=== PATIENT | female | born 1945 | race Caucasian/White ===

== ENCOUNTER 2016-11-08 13:56 | Emergency (ER) | payer MEDICARE ==
[~2016-11-08 13:56] MED LIST: ACETAMINOPHEN325 MG PO; ALBUTEROL S3 ML/VIAL NEB; ANORO ELLIPTA1 EACH IH; ASPIR 8181 MG PO; CRESTOR5 MG PO; CYCLOBENZAPRINE10 MG PO; HYDROCODON-ACE1 EAC2 PO; NEURONTIN300 MG PO; PREDNISONE10 MG PO; PREDNISONE5 MG PO; PROAIR HFA8.5 GM IH; SUPER ENZYME C1 EACH PO; SYNTHROID75 MCG PO; THEOPHYLLINE400 MG PO; TOPROL XL25 MG PO
== END 2016-11-08 17:12 | disposition home or self-care (01) ==
LOC: ER 13:56
DX: S62.614A Displaced fracture of proximal phalanx of right ring finger, initial encounter for closed fracture (principal); F32.9 Major depressive disorder, single episode, unspecified; E78.00 Pure hypercholesterolemia, unspecified; Z79.899 Other long term (current) drug therapy; Z79.82 Long term (current) use of aspirin; Z79.52 Long term (current) use of systemic steroids; Z88.0 Allergy status to penicillin; W19.XXXA Unspecified fall, initial encounter; Z88.1 Allergy status to other antibiotic agents

== ENCOUNTER 2016-11-29 14:33 | Emergency (ER) | payer MEDICARE | END 2016-11-29 17:18 | disposition home or self-care (01) | LOC: ER 14:33 | DX: R07.9 Chest pain, unspecified (principal); E05.90 Thyrotoxicosis, unspecified without thyrotoxic crisis or storm; R06.02 Shortness of breath; R05 Cough; F41.9 Anxiety disorder, unspecified; J44.9 Chronic obstructive pulmonary disease, unspecified; F32.9 Major depressive disorder, single episode, unspecified; I10 Essential (primary) hypertension; E03.9 Hypothyroidism, unspecified; Z98.51 Tubal ligation status; Z79.82 Long term (current) use of aspirin; Z79.899 Other long term (current) drug therapy; Z88.0 Allergy status to penicillin; Z88.1 Allergy status to other antibiotic agents | CPT/HCPCS: 36415; 87502; 96360 ==

== ENCOUNTER → 2016-12-02 12:41 | Emergency (ER) | payer MEDICARE ==
[~2016-12-02 12:41] MED LIST changes: +ALBUTEROL1.25 MG/3 NEB; +ALBUTEROL2.5 MG/0.5 NEB; +AZITHROMYCIN250 MG PO; +BENZONATATE100 MG PO; +CARDIZEM CD120 MG PO; +CREON DR 24,001 EACH PO; +CULTURELLE1 EACH PO; +HYDROCODON-ACE1 EAC4 PO; +LOPRESSOR50 MG PO; +NITROSTAT0.4 MG SL; +PREDNISONE20 MG PO; +SPIRIVA18 MCG IH; +SYMBICORT 16010.2 GM IH; +TUSSIONEX PENN473 ML PO; +VANCOMYCIN HCL125 MG PO; +VISTARIL25 MG PO
== END | disposition admitted as inpatient to this hospital (09) ==
LOC: ER 12:41
DX: J44.1 Chronic obstructive pulmonary disease with (acute) exacerbation (principal); R10.9 Unspecified abdominal pain; F32.9 Major depressive disorder, single episode, unspecified; I10 Essential (primary) hypertension; E78.00 Pure hypercholesterolemia, unspecified; Z98.51 Tubal ligation status; Z79.82 Long term (current) use of aspirin; Z79.899 Other long term (current) drug therapy; Z88.0 Allergy status to penicillin; Z88.1 Allergy status to other antibiotic agents
CPT/HCPCS: 36415; 87502; 96361; 96374; Q9967

== ENCOUNTER 2016-12-02 12:42 | Inpatient (IN) | payer MEDICARE ==
[~2016-12-02 12:42] MED LIST changes: -ALBUTEROL1.25 MG/3 NEB; -ALBUTEROL2.5 MG/0.5 NEB; -AZITHROMYCIN250 MG PO; -BENZONATATE100 MG PO; -CARDIZEM CD120 MG PO; -CREON DR 24,001 EACH PO; -CULTURELLE1 EACH PO; -HYDROCODON-ACE1 EAC4 PO; -LOPRESSOR50 MG PO; -NITROSTAT0.4 MG SL; -PREDNISONE20 MG PO; -SPIRIVA18 MCG IH; -SYMBICORT 16010.2 GM IH; -TUSSIONEX PENN473 ML PO; -VANCOMYCIN HCL125 MG PO; -VISTARIL25 MG PO
--- NOTE | 2016-12-07 13:54 | NUR ---
1350 - PATIENT DISCHARGED HOME/MD ORDER. IV REMOVED. APPTS. AND PRESCRIPTIONS GIVEN. OUT VIA WHEELCHAIR WITH O2. HOME WITH SON VIA PRIVATE VEHICLE.
== END 2016-12-07 13:50 | disposition home health service (06) | DRG 190 ==
LOC: ER 12:42 → MED 17:00
PROVIDERS: ADMIT Internal Medicine
DX: J44.0 Chronic obstructive pulmonary disease with (acute) lower respiratory infection (principal); J18.9 Pneumonia, unspecified organism; A04.7 Enterocolitis due to Clostridium difficile; K86.1 Other chronic pancreatitis; B37.0 Candidal stomatitis; J44.1 Chronic obstructive pulmonary disease with (acute) exacerbation; I12.9 Hypertensive chronic kidney disease with stage 1 through stage 4 chronic kidney disease, or unspecified chronic kidney disease; N18.3 Chronic kidney disease, stage 3 (moderate); R74.8 Abnormal levels of other serum enzymes; E87.6 Hypokalemia; R73.9 Hyperglycemia, unspecified; T38.0X5A Adverse effect of glucocorticoids and synthetic analogues, initial encounter; F41.9 Anxiety disorder, unspecified; F32.9 Major depressive disorder, single episode, unspecified; E03.9 Hypothyroidism, unspecified; E78.5 Hyperlipidemia, unspecified; Z85.41 Personal history of malignant neoplasm of cervix uteri; Z95.2 Presence of prosthetic heart valve; Z79.82 Long term (current) use of aspirin; Z79.899 Other long term (current) drug therapy; Z88.1 Allergy status to other antibiotic agents; Z88.0 Allergy status to penicillin; Z87.891 Personal history of nicotine dependence; Z80.52 Family history of malignant neoplasm of bladder; K59.00 Constipation, unspecified; I25.2 Old myocardial infarction
CPT/HCPCS: 36415; 87502; 94664; 97162-GP; 97166; J0456; J1650; J3370; J7050; Q9967

== ENCOUNTER 2016-12-14 09:40 | Observation (INO) | payer MEDICARE ==
[2016-12-14] MEDS ORDERED: CARDIZEM CD120 MG PO (10:29)
[2016-12-14] MEDS ORDERED: ALBUTEROL2.5 MG/0.5 NEB (10:29)
[2016-12-14] MEDS ORDERED: NEURONTIN300 MG PO (10:29)
[2016-12-14] MEDS ORDERED: VANCOMYCIN HCL125 MG PO (10:29)
[2016-12-14] MEDS ORDERED: PROAIR HFA8.5 GM IH (10:30)
[2016-12-14] MEDS ORDERED: CRESTOR5 MG PO (10:31)
[2016-12-14] MEDS ORDERED: SYNTHROID75 MCG PO (10:31)
[2016-12-14] MEDS ORDERED: CYCLOBENZAPRINE10 MG PO (10:31)
[2016-12-14] MEDS ORDERED: ASPIR 8181 MG PO (10:32)
[2016-12-14] MEDS ORDERED: CREON DR 24,001 EACH PO (10:33)
[2016-12-14] MEDS ORDERED: CULTURELLE1 EACH PO (10:33)
[2016-12-14] MEDS ORDERED: ACETAMINOPHEN325 MG PO (10:33)
[2016-12-14] MEDS ORDERED: SPIRIVA18 MCG IH (10:34)
[2016-12-14] MEDS ORDERED: SYMBICORT 16010.2 GM IH (10:34)
[2016-12-14] MEDS ORDERED: VISTARIL25 MG PO (10:34)
[2016-12-14] MEDS ORDERED: HYDROCODON-ACE1 EAC4 PO (10:35)
[2016-12-14] MEDS ORDERED: AZITHROMYCIN250 MG PO (10:35)
[2016-12-14] MEDS ORDERED: PREDNISONE10 MG PO (10:36)
[2016-12-16] MEDS ORDERED: VANCOMYCIN HCL125 MG PO (11:22)
[2016-12-16] MEDS ORDERED: PROAIR HFA8.5 GM IH (11:23)
[2016-12-16] MEDS ORDERED: NEURONTIN300 MG PO (11:23)
[2016-12-16] MEDS ORDERED: ALBUTEROL1.25 MG/3 NEB (11:23)
[2016-12-16] MEDS ORDERED: ASPIR 8181 MG PO (11:24)
[2016-12-16] MEDS ORDERED: CRESTOR5 MG PO (11:24)
[2016-12-16] MEDS ORDERED: SYNTHROID75 MCG PO (11:24)
[2016-12-16] MEDS ORDERED: CULTURELLE1 EACH PO (11:25)
[2016-12-16] MEDS ORDERED: ACETAMINOPHEN325 MG PO (11:25)
[2016-12-16] MEDS ORDERED: CREON DR 24,001 EACH PO (11:25)
[2016-12-16] MEDS ORDERED: SPIRIVA18 MCG IH (11:26)
[2016-12-16] MEDS ORDERED: SYMBICORT 16010.2 GM IH (11:27)
[2016-12-16] MEDS ORDERED: HYDROCODON-ACE1 EAC4 PO (11:27)
[2016-12-16] MEDS ORDERED: VISTARIL25 MG PO (11:27)
[2016-12-16] MEDS ORDERED: PREDNISONE20 MG PO (11:28)
[2016-12-16] MEDS ORDERED: PREDNISONE10 MG PO (11:29)
[2016-12-16] MEDS ORDERED: BENZONATATE100 MG PO (11:29)
[2016-12-16] MEDS ORDERED: NITROSTAT0.4 MG SL (11:30)
[2016-12-16] MEDS ORDERED: TUSSIONEX PENN473 ML PO (11:30)
[2016-12-16] MEDS ORDERED: LOPRESSOR50 MG PO (11:31)
--- NOTE | 2016-12-16 14:08 | NUR ---
1407 - NOTIFIED AURORA IRWIN AND SON OF DIRECTIONS TO TAKE PREDNISIONE MD ORDERED. PREDNISONE 20 MG X 1 DAY ON 12/17/16 AND PREDNISONE 10 MG X 1 DAY ON 12/18/16. THEN STOP PREDNISONE. MS IRWIN AND SON VERBALIZED UNDERSTANDIN ON HOW TO TAKE PREDNISONE.
== END 2016-12-16 13:05 | disposition home or self-care (01) ==
LOC: ER 09:40 → MED 15:12
PROVIDERS: ADMIT Internal Medicine
DX: R07.81 Pleurodynia (principal); A04.7 Enterocolitis due to Clostridium difficile; I12.9 Hypertensive chronic kidney disease with stage 1 through stage 4 chronic kidney disease, or unspecified chronic kidney disease; N18.3 Chronic kidney disease, stage 3 (moderate); J44.1 Chronic obstructive pulmonary disease with (acute) exacerbation; F41.9 Anxiety disorder, unspecified; F32.9 Major depressive disorder, single episode, unspecified; Z85.41 Personal history of malignant neoplasm of cervix uteri; Z87.891 Personal history of nicotine dependence; Z82.49 Family history of ischemic heart disease and other diseases of the circulatory system; Z79.82 Long term (current) use of aspirin; Z79.899 Other long term (current) drug therapy; Z95.4 Presence of other heart-valve replacement; Z98.890 Other specified postprocedural states
CPT/HCPCS: 36415; 94664; 96372; 96374; 96375; 96376; 97162-GP; 97165; G0378; J1650; Q9967

== ENCOUNTER 2016-12-20 09:44 | Observation (INO) | payer MEDICARE ==
[~2016-12-20] VITALS: Ht 149.9 cm; Wt 59.2 kg
[~2016-12-20 09:44] MED LIST changes: +ALBUTEROL1.25 MG/3 NEB; +ALBUTEROL2.5 MG/0.5 NEB; +AZITHROMYCIN250 MG PO; +BENZONATATE100 MG PO; +CARDIZEM CD120 MG PO; +CREON DR 24,001 EACH PO; +CULTURELLE1 EACH PO; +HYDROCODON-ACE1 EAC4 PO; +LOPRESSOR50 MG PO; +NITROSTAT0.4 MG SL; +PREDNISONE20 MG PO; +SPIRIVA18 MCG IH; +SYMBICORT 16010.2 GM IH; +TUSSIONEX PENN473 ML PO; +VANCOMYCIN HCL125 MG PO; +VISTARIL25 MG PO
== END 2016-12-23 15:45 | disposition home or self-care (01) ==
LOC: ER 09:44 → MED 12:58
PROVIDERS: ADMIT Internal Medicine
DX: R53.1 Weakness (principal); F41.9 Anxiety disorder, unspecified; R19.7 Diarrhea, unspecified; J44.9 Chronic obstructive pulmonary disease, unspecified; I12.9 Hypertensive chronic kidney disease with stage 1 through stage 4 chronic kidney disease, or unspecified chronic kidney disease; N18.3 Chronic kidney disease, stage 3 (moderate); I25.10 Atherosclerotic heart disease of native coronary artery without angina pectoris; E03.9 Hypothyroidism, unspecified; E78.5 Hyperlipidemia, unspecified; Z85.41 Personal history of malignant neoplasm of cervix uteri; Z87.891 Personal history of nicotine dependence; Z79.1 Long term (current) use of non-steroidal anti-inflammatories (NSAID); Z79.82 Long term (current) use of aspirin; Z79.891 Long term (current) use of opiate analgesic; Z79.899 Other long term (current) drug therapy; Z95.4 Presence of other heart-valve replacement
CPT/HCPCS: 36415; 74020; 94664; 96374; 97162-GP; 97165; G0378